=== PATIENT | female | born 1990 | race Caucasian/White ===

== ENCOUNTER 2019-03-17 16:34 | Emergency (ER) | payer MEDICAID ==
[~2019-03-17] VITALS: Ht 154.9 cm; Wt 49.2 kg
[2019-03-17 16:40] VITALS: BP 108/56; PULSE 59; RESP 16; Ht 154.9 cm; Wt 49.2 kg
--- NOTE | 2019-03-17 18:03 | ERD ---
ER Documentation Chief Complaint Chief Complaint MD ref eval: UTI. '7-9 weeks '. HPI 28-year-old female approximately 7 weeks is here sent by primary care doctor because she had a urinalysis test that was positive and the culture also showed it was resistant to all medications they were okay during . She has minor low back and pelvic pain which she attributes to normal symptoms. She denies any dysuria hematuria urinary frequency or urgency. No nausea or vomiting. ROS All systems reviewed and are negative except as per history of present illness. Allergies Allergies: Coded Allergies: No Known Allergy (Unverified , 03/17/19) PMhx/Soc Medical and Surgical Hx: pt denies Medical Hx, pt denies Surgical Hx Hx Alcohol Use: No Hx Substance Use: No Hx Tobacco Use: No Smoking Status: Never smoker FmHx Family History: No diabetes Physical Exam Vitals Vital Signs Date Temp Pulse Resp B/P (MAP) Pulse Ox O2 O2 Flow FiO2 Time Delivery Rate 03/17/19 99.3 59 16 108/56 98 16:40 (73) Physical Exam Const: No acute distress Head: Atraumatic Eyes: Normal Conjunctiva ENT: Normal External Ears, Nose and Mouth. Neck: Full range of motion. No meningismus. Resp: Clear to auscultation bilaterally Cardio: Regular rate and rhythm, no murmurs Abd: Soft, non tender, non distended Results 24 hrs Laboratory Tests Test 03/17/19 17:36 Urine Color YELLOW Urine Clarity CLOUDY Urine pH 6.0 Urine Specific [place] 1.011 Urine Ketones NEGATIVE mg/dL Urine Nitrite NEGATIVE mg/dL Urine Bilirubin NEGATIVE mg/dL Urine Urobilinogen NEGATIVE mg/dL Urine Leukocyte Esterase TRACE Piter/ul Urine Microscopic RBC 0 /HPF Urine Microscopic WBC 7 /HPF Urine Squamous Epithelial Cells MODERATE /HPF Urine Bacteria FEW /HPF Urine Hemoglobin NEGATIVE mg/dL Urine Glucose NEGATIVE mg/dL Urine Total Protein NEGATIVE mg/dl Procedures/MDM Patient here because she had a positive urinalysis that was resistant to antibiotics. Repeat urinalysis today is negative. I reviewed the results with Dr. Barrientos and we agree there is no need to treat the patient especially given she is not symptomatic. She was given copy of the results and the urine was sent for culture. Patient counseled regarding my diagnostic impression and care plan. Prior to discharge all questions answered. Pt agrees with treatment plan and understands strict return precautions. Pt is instructed to follow up with primary care provider within 24-48 hours. Precautionary instructions provided including instructions to return to the ER if not improving or for any worsening or changing symptoms or concerns. Departure Diagnosis: Primary Impression: Encounter for medical screening examination Condition: Stable Patient Instructions: Medical Screening Exam, Nonurgent Additional Instructions: Llame al doctor MACK y pee agnes KAT PARA DENTRO DE 1-2 PERAZA.Dgale a la secretaria que nosotros le instruimos hacer esta kat.Avise o llame si gonzalez condicin se empeora antes de la kat. Regresa aqui si peor o no mejor. RASHEED WATT PA-C Mar 17, 2019 18:03
== END 2019-03-17 18:13 | disposition home or self-care (01) ==
LOC: FTE 16:34
DX: O26.891 Other specified pregnancy related conditions, first trimester (principal); R10.2 Pelvic and perineal pain; Z3A.00 Weeks of gestation of pregnancy not specified
CPT/HCPCS: 81001; 87086; Z7502; 99283